=== PATIENT | female | born 2005 ===

== ENCOUNTER 2024-06-14 00:01 | Inpatient (IN) | payer SELFPAY ==
[2024-06-14] MEDS ORDERED: Lidocaine 1% 50 ML MDV INJECT PRN (20:46)
[2024-06-14] MEDS ORDERED: Ondansetron 4 MG/2 ML SDV IVPUSH PRN (20:46)
[2024-06-14] MEDS ORDERED: Sodium Chloride 0.9% 2.5 ML Syringe FLUSH PRN (20:46)
[2024-06-14] MEDS ORDERED: Terbutaline 1 MG/ML SDV SUBCUT PRN (20:46)
[2024-06-14] MEDS ORDERED: Sodium Chloride 0.9% 10 ML Syringe FLUSH PRN (20:46)
[2024-06-14] MEDS ORDERED: Water For Irrigation,Sterile 1,000 ML Container IRR PRN (20:46)
[2024-06-14] MEDS ORDERED: Methylergonovine 0.2 MG/1 ML Amp IM PRN (20:46)
[2024-06-14] MEDS ORDERED: Carboprost Tromethamine 250 MCG/1 mL Vial IM PRN (20:46)
[2024-06-14] MEDS ORDERED: Misoprostol 200 MCG Tab RECTAL PRN (20:46)
[2024-06-14] MEDS ORDERED: Sodium Chloride 0.9% 20 ML SDV IV PRN (20:46)
[2024-06-14] MEDS ORDERED: Misoprostol 200 MCG Tab PO PRN (20:46)
[2024-06-14] MEDS ORDERED: Oxytocin/0.9 % Sodium Chloride 30 UNIT/500 ML BAG IV SCH (21:00)
[2024-06-14] MEDS ORDERED: Tranexamic Acid in NACL,ISO-OS 1,000 MG in Premix Bag 1 BAG IV ONE ×2 (21:02→22:07)
[2024-06-14 22:02] LABS: HEMATOCRIT 38.7 % (37.0-47.0); HEMOGLOBIN 13.7 g/dL (12.0-16.0); MEAN CORPUSCULAR HGB CONC 35.4 g/dL (32.0-36.0); MEAN CORPUSCULAR VOLUME 90.4 fL (83.0-99.0); MEAN PLATELET VOLUME 11.6 fL (9.4-12.3); PLATELET COUNT,PLT 144 K/uL (150-400); RED BLOOD CELL COUNT 4.28 M/uL (4.10-5.30); WHITE BLOOD CELL COUNT,WBC 8.93 K/uL (3.9-11.3)
[2024-06-14] MEDS: Dinoprostone 10 MG Insert VAG PRN (22:22)
[2024-06-15] MEDS ORDERED: Oxytocin/0.9 % Sodium Chloride 30 UNIT/500 ML BAG ONE (10:28)
[2024-06-15] MEDS: Lactated Ringers 1,000 ML IV SCH (10:40)
[2024-06-15] MEDS: Oxytocin/0.9 % Sodium Chloride 30 UNIT/500 ML BAG IV SCH (10:40)
[2024-06-15] MEDS: Butorphanol 2 MG/ML SDV IVPUSH PRN (18:35)
[2024-06-15] MEDS ORDERED: Bupivacaine 0.5% 10 ML SDV ONE (21:29)
[2024-06-15] MEDS ORDERED: Ropivacaine HCl/PF 200 ML ONE (21:30)
[2024-06-15] MEDS ORDERED: Phenylephrine HCl In 0.9% NaCl 1 MG/10 ML Syringe ONE (21:30)
[2024-06-15] MEDS: Ropivacaine HCl/PF 400 MG in Premix Bag 1 BAG EPIDUR SCH (21:50)
[2024-06-15] MEDS ORDERED: ePHEDrine 50 MG/ML SDV IVPUSH PRN (21:58)
[2024-06-15] MEDS ORDERED: ePHEDrine 50 MG/ML SDV IM PRN (21:58)
[2024-06-15] MEDS ORDERED: Bupivacaine 0.5% 10 ML SDV INJECT ONE (21:58)
[2024-06-15] MEDS ORDERED: dexmedeTOMIDine HCl 200 MCG/2 ML SDV EPIDUR SCH (22:00)
[2024-06-15] MEDS: Phenylephrine HCl In 0.9% NaCl 1 MG/10 ML Syringe IVPUSH PRN (22:17)
[2024-06-16] MEDS ORDERED: Carboprost Tromethamine 250 MCG/1 mL Vial IM PRN (00:25)
[2024-06-16] MEDS ORDERED: Misoprostol 200 MCG Tab RECTAL PRN (00:25)
[2024-06-16] MEDS ORDERED: Methylergonovine 0.2 MG/1 ML Amp IM PRN (00:25)
[2024-06-16] MEDS ORDERED: Docusate Sodium 100 MG Cap PO PRN (00:25)
[2024-06-16 00:32] LABS: PH,UMBILICAL ARTERIAL 7.27 (7.18-7.38); PH,UMBILICAL VENOUS 7.33 (7.25-7.45)
[2024-06-16] MEDS: Benzocaine/Menthol 20%-0.5% Spray 78 GM Cannister TOP PRN (02:23)
[2024-06-16] MEDS: Witch Hazel Medicated Pads 40/Jar TOP PRN (02:23)
[2024-06-16] MEDS: Lanolin 100% Cream 7 GM Tube TOP PRN (02:24)
[2024-06-16] MEDS: Acetaminophen 500 MG Tab PO PRN (02:24)
[2024-06-16] MEDS: Ibuprofen 800 MG Tab PO PRN (08:50)
[2024-06-17 05:56] LABS: HEMATOCRIT 38.2 % (37.0-47.0); HEMOGLOBIN 13.2 g/dL (12.0-16.0)
== END 2024-06-17 19:05 | disposition home or self-care (01) | DRG 807 ==
LOC: MW.OB 00:01 → OBSVTOIN 06-16 00:01 → MW.OB 06-16 02:45
PROVIDERS: ADMIT Obstetrics & Gynecology; ATTEND Obstetrics & Gynecology
PROC: 10E0XZZ Delivery of Products of Conception, External Approach (ICD-10-PCS; principal; 2024-06-16)
PROC: 3E033VJ Introduction of Other Hormone into Peripheral Vein, Percutaneous Approach (ICD-10-PCS; 2024-06-16)
PROC: 3E0P7VZ Introduction of Hormone into Female Reproductive, Via Natural or Artificial Opening (ICD-10-PCS; 2024-06-16)
PROC: 3E0R3BZ Introduction of Anesthetic Agent into Spinal Canal, Percutaneous Approach (ICD-10-PCS; 2024-06-16)
PROC: 00HU33Z Insertion of Infusion Device into Spinal Canal, Percutaneous Approach (ICD-10-PCS; 2024-06-16)
PROC: 10907ZC Drainage of Amniotic Fluid, Therapeutic from Products of Conception, Via Natural or Artificial Opening (ICD-10-PCS; 2024-06-16)
DX: O36.5930 Maternal care for other known or suspected poor fetal growth, third trimester, not applicable or unspecified (principal); Z37.0 Single live birth; Z3A.37 37 weeks gestation of pregnancy; Z98.890 Other specified postprocedural states
CPT/HCPCS: 01967; 36415; 51702; 82803; 85014; 85018; 85027; 86592; 86850; 86900; 86901; A9270-GY; J0595; J0665; J2371; J2590; J2795; J7120